=== PATIENT | male | born 1960 | race Caucasian/White ===

== ENCOUNTER 2020-12-29 15:35 | Emergency (ER) | payer OTHER ==
[~2020-12-29 15:35] MED LIST: ASPIRIN EC81 MG PO; HCTZ25 MG PO; LIPITOR 10MG TA10 MG PO; NORVASC5 MG PO; ZOFRAN4 MG SL
[2020-12-29 17:10] LABS: BASOPHIL 0.7 % (0-2); EOSINOPHIL 1.5 % (0-5); HCT 41.4 % (42.0-52.0); HGB 13.2 g/dl (13.2-18.0); MCH 32.7 pg (25.0-31.0); MCHC 31.9 g/dL (32.0-36.0); MCV 102.5 fL (78.0-100.0); MONOCYTE 9.5 % (0-12); MPV 10.7 fL (6.0-9.5); NEUTROPHIL 75.9 % (41-80); NRBC 0; PLT 254 K/uL (150-400); RBC 4.04 M/uL (4.70-6.00); RETICULOCYTE COUNT 3.7 % (1.0-2.0); WBC 6.9 K/uL (4.0-10.5)
[2020-12-29 17:20] LABS: INR 1.13 (0.9-1.2); PROTHROMBIN TIME 13.8 SECONDS (11.4-13.6)
[2020-12-29 17:30] LABS: IRON % SATURATION 17.3 %SAT (20-50)
[2020-12-29 18:05] LABS: ALBUMIN 2.6 g/dL (3.4-5.0); BILIRUBIN - TOTAL 0.4 mg/dL (0.2-1.0); BUN/CREAT RATIO (CALC) 20.8 RATIO; CREATININE 0.53 mg/dL (0.67-1.17); GLOBULIN (CALCULATION) 4.2 g/dL; MAGNESIUM 1.8 mg/dL (1.8-2.4); POTASSIUM 4.3 mmol/L (3.5-5.1); TOTAL PROTEIN 6.8 g/dL (6.4-8.2)
== END 2020-12-29 21:13 | disposition home or self-care (01) ==
LOC: FER 15:35
PROVIDERS: Emergency Medicine
DX: R06.02 Shortness of breath (principal); C15.9 Malignant neoplasm of esophagus, unspecified; C79.51 Secondary malignant neoplasm of bone; J90 Pleural effusion, not elsewhere classified; Z20.822 Contact with and (suspected) exposure to COVID-19
CPT/HCPCS: 36415; 71250; 80053; 82728; 83540; 83550; 83735; 84145; 84443; 84484; 85025; 85379; 85610; 93005; J1642; U0002

== ENCOUNTER 2021-01-01 14:14 | Emergency (ER) | payer OTHER | END 2021-01-01 15:50 | disposition left against medical advice (07) | LOC: FER 14:14 | DX: J90 Pleural effusion, not elsewhere classified (principal); I10 Essential (primary) hypertension; Z85.01 Personal history of malignant neoplasm of esophagus; Z87.898 Personal history of other specified conditions; Z53.8 Procedure and treatment not carried out for other reasons | CPT/HCPCS: 99284 ==

== ENCOUNTER 2021-02-06 13:11 | Inpatient (IN) | payer OTHER ==
[2021-02-06 15:25] LABS: ALBUMIN 1.3 g/dL (3.4-5.0); BASOPHIL 0.2 % (0-2); BILIRUBIN - TOTAL 0.2 mg/dL (0.2-1.0); BUN/CREAT RATIO (CALC) 20.6 RATIO; CREATININE 0.34 mg/dL (0.67-1.17); EOSINOPHIL 0.3 % (0-5); GLOBULIN (CALCULATION) 2.9 g/dL; HCT 32.8 % (42.0-52.0); HGB 10.8 g/dl (13.2-18.0); LYMPHOCYTE 3.5 % (15-48); MCH 32.4 pg (25.0-31.0); MCHC 32.9 g/dL (32.0-36.0); MCV 98.5 fL (78.0-100.0); MONOCYTE 6.5 % (0-12); MPV 10.5 fL (6.0-9.5); NEUTROPHIL 88.8 % (41-80); NRBC 0; PLT 304 K/uL (150-400); POTASSIUM 2.5 mmol/L (3.5-5.1); RBC 3.33 M/uL (4.70-6.00); RDW 14.4 % (11.5-14.0); TOTAL PROTEIN 4.2 g/dL (6.4-8.2)
[2021-02-06 15:31] LABS: INR 1.22 (0.9-1.2); PROTHROMBIN TIME 14.6 SECONDS (11.4-13.6); PTT 31.7 SECONDS (22.2-34.7)
[2021-02-06 16:02] LABS: PHOSPHORUS 2.8 mg/dL (2.6-4.7)
[2021-02-06] MEDS ORDERED: MAG-OXIDE 400M400 MG PO (16:50)
[2021-02-06] MEDS ORDERED: PROTONIX 40MG T40 MG PO (16:52)
[2021-02-06] MEDS ORDERED: CYPROHEPTADINE H4 M1 PO (16:54)
[2021-02-06] MEDS ORDERED: COMPAZINE10 MG PO (16:55)
[2021-02-06] MEDS ORDERED: DEXAMETHASONE1 MG PO (16:56)
[2021-02-06] MEDS ORDERED: PROBIOTIC1 EAC1 PO (16:56)
[2021-02-06] MEDS ORDERED: CYMBALTA 30MG C30 MG PO (16:58)
[2021-02-06] MEDS ORDERED: PERCOCET 10-321 EACH PO (16:59)
[2021-02-06] MEDS ORDERED: ONDANSETRON ODT8 MG PO (17:00)
[2021-02-07 06:05] LABS: BASOPHIL 0.6 % (0-2); EOSINOPHIL 0.5 % (0-5); HCT 37.6 % (42.0-52.0); HGB 12.5 g/dl (13.2-18.0); LYMPHOCYTE 8.4 % (15-48); MCH 32.6 pg (25.0-31.0); MCHC 33.2 g/dL (32.0-36.0); MCV 97.9 fL (78.0-100.0); MPV 10.8 fL (6.0-9.5); NEUTROPHIL 78.5 % (41-80); NRBC 0; PLT 371 K/uL (150-400); RBC 3.84 M/uL (4.70-6.00); RDW 14.6 % (11.5-14.0); WBC 10.5 K/uL (4.0-10.5)
[2021-02-07 06:23] LABS: BUN/CREAT RATIO (CALC) 18.5 RATIO; CREATININE 0.54 mg/dL (0.67-1.17)
[2021-02-07 06:27] LABS: MAGNESIUM 1.9 mg/dL (1.8-2.4); POTASSIUM 4.3 mmol/L (3.5-5.1)
--- NOTE | 2021-02-07 12:16 | NUR ---
Consult placed for assessment of nutritional/ wt loss with low serum proteins. Pt currently NPO : visited patient for intake history and any deficits with oral intake. Dicussed POC with MD - awaiting surgical consult. will f/u when p.o. appropriate.
--- NOTE | 2021-02-07 12:39 | NUR ---
Pt. to d/c home with girlfriend. a referral was put in on patient that he had a plan to harm himself. Spoke with nurse, Elise. She said that was a mistake. When she was completing his assessment she hit the yes by mistake. She stated that pt did not have any sucidial ideations. if pt. has any d/c needs please advise.
[2021-02-08 05:20] LABS: BASOPHIL 0.7 % (0-2); EOSINOPHIL 1.2 % (0-5); HCT 37.4 % (42.0-52.0); HGB 12.3 g/dl (13.2-18.0); LYMPHOCYTE 7.5 % (15-48); MCH 32.5 pg (25.0-31.0); MCHC 32.9 g/dL (32.0-36.0); MCV 98.7 fL (78.0-100.0); MONOCYTE 8.4 % (0-12); NEUTROPHIL 81.2 % (41-80); NRBC 0; PLT 312 K/uL (150-400); RBC 3.79 M/uL (4.70-6.00); RDW 14.7 % (11.5-14.0); WBC 10.1 K/uL (4.0-10.5)
[2021-02-08 05:48] LABS: BUN/CREAT RATIO (CALC) 21.1 RATIO; CREATININE 0.57 mg/dL (0.67-1.17); POTASSIUM 4.4 mmol/L (3.5-5.1)
--- NOTE | 2021-02-08 14:38 | NUR ---
PT TO D/C HOME. NO NEEDS PER DR. JUAREZ.
--- NOTE | 2021-02-08 18:39 | NUR ---
md notified about pt nose bleed and increased confusion and md stated to just monitor pt status and vitals
[2021-02-09 07:20] LABS: BASOPHIL 0.4 % (0-2); EOSINOPHIL 0.6 % (0-5); HCT 40.2 % (42.0-52.0); HGB 13.2 g/dl (13.2-18.0); LYMPHOCYTE 6.4 % (15-48); MCH 32.8 pg (25.0-31.0); MCHC 32.8 g/dL (32.0-36.0); MONOCYTE 8.2 % (0-12); MPV 10.3 fL (6.0-9.5); NEUTROPHIL 83.4 % (41-80); NRBC 0; PLT 351 K/uL (150-400); RBC 4.02 M/uL (4.70-6.00); RDW 14.6 % (11.5-14.0); WBC 12.6 K/uL (4.0-10.5)
[2021-02-09 07:55] LABS: CREATININE 0.6 mg/dL (0.67-1.17); POTASSIUM 4.5 mmol/L (3.5-5.1)
--- NOTE | 2021-02-09 13:23 | NUR ---
0810- PT ASPIRATED WHILE DRINKING WATER, PT VOMITED. I +E WHEEZING, RALES LISA LOWER LOBES. PT DYPHORETIC, DESTATED TO 69% PLACED ON NRB. DR. KRISHNAMURTHY AT [facility] NOTIFIED AND ASSESSED PT. STAT CXRAY AND DUO NEB ORDERED. DR. KRISHNAMURTHY SPOKE WITH DR. CORBIN UPON HIS ARRIVAL. PT O2 SAT 96% ON NRB.
[2021-02-10 03:55] LABS: BASOPHIL 0.3 % (0-2); EOSINOPHIL 0.6 % (0-5); HCT 36.9 % (42.0-52.0); HGB 12.2 g/dl (13.2-18.0); LYMPHOCYTE 5.3 % (15-48); MCH 32.4 pg (25.0-31.0); MCHC 33.1 g/dL (32.0-36.0); MCV 98.1 fL (78.0-100.0); MONOCYTE 6.9 % (0-12); MPV 9.9 fL (6.0-9.5); NEUTROPHIL 86.4 % (41-80); NRBC 0; PLT 359 K/uL (150-400); RBC 3.76 M/uL (4.70-6.00); RDW 14.7 % (11.5-14.0); WBC 15.4 K/uL (4.0-10.5)
[2021-02-10 04:22] LABS: PRO-BNP 967 pg/mL (<125)
[2021-02-11 04:15] LABS: BASOPHIL 0.2 % (0-2); EOSINOPHIL 0.6 % (0-5); HCT 36.4 % (42.0-52.0); LYMPHOCYTE 4.8 % (15-48); MCH 32.3 pg (25.0-31.0); MCV 97.8 fL (78.0-100.0); MONOCYTE 6.9 % (0-12); MPV 9.7 fL (6.0-9.5); NEUTROPHIL 86.8 % (41-80); NRBC 0; PLT 282 K/uL (150-400); RBC 3.72 M/uL (4.70-6.00); RDW 14.5 % (11.5-14.0); WBC 13.5 K/uL (4.0-10.5)
[2021-02-11 04:46] LABS: BUN/CREAT RATIO (CALC) 24.5 RATIO; CREATININE 0.49 mg/dL (0.67-1.17); POTASSIUM 4.1 mmol/L (3.5-5.1)
--- NOTE | 2021-02-11 15:59 | NUR ---
02/11/21 Portable 02 was delivered to the hospital by Alisha on 02/10. Alisha was notified of patient's discharge today by Tho Myers. Samys will arrange delivery of the concentrator.
== END 2021-02-11 15:00 | disposition home or self-care (01) | DRG 199 ==
LOC: FER 13:11 → FTCU 14:21
PROVIDERS: Internal Medicine Cardiovascular Disease; Nurse Practitioner; ADMIT Internal Medicine
PROC: 0W9B30Z Drainage of Left Pleural Cavity with Drainage Device, Percutaneous Approach (ICD-10-PCS; principal; 2021-02-06)
DX: J95.811 Postprocedural pneumothorax (principal); G93.41 Metabolic encephalopathy; J91.0 Malignant pleural effusion; C78.00 Secondary malignant neoplasm of unspecified lung; C15.9 Malignant neoplasm of esophagus, unspecified; Z20.822 Contact with and (suspected) exposure to COVID-19; I48.0 Paroxysmal atrial fibrillation; E78.00 Pure hypercholesterolemia, unspecified; D51.9 Vitamin B12 deficiency anemia, unspecified; D50.9 Iron deficiency anemia, unspecified; E55.9 Vitamin D deficiency, unspecified; Z66 Do not resuscitate; I10 Essential (primary) hypertension; K29.50 Unspecified chronic gastritis without bleeding; F17.200 Nicotine dependence, unspecified, uncomplicated; Z79.899 Other long term (current) drug therapy; Z98.890 Other specified postprocedural states; Z90.49 Acquired absence of other specified parts of digestive tract; Y83.8 Other surgical procedures as the cause of abnormal reaction of the patient, or of later complication, without mention of misadventure at the time of the procedure
CPT/HCPCS: 36415; 36600; 70450; 71045; 71046; 80048; 80053; 82803; 83605; 83735; 83880; 84100; 84443; 84484; 85025; 85610; 85730; 93005; 94010; 94640; 96374; J0610; J1630; J1642; J2060; J3475; J7040; Q0164; U0002

== ENCOUNTER 2021-02-12 19:06 | Inpatient (IN) | payer OTHER ==
[~2021-02-12 19:06] MED LIST changes: +COMPAZINE10 MG PO; +CYMBALTA 30MG C30 MG PO; +CYPROHEPTADINE H4 M1 PO; +DEXAMETHASONE1 MG PO; +MAG-OXIDE 400M400 MG PO; +ONDANSETRON ODT8 MG PO; +PERCOCET 10-321 EACH PO; +PROBIOTIC1 EAC1 PO; +PROTONIX 40MG T40 MG PO
[2021-02-12 19:57] LABS: BASOPHIL 0.2 % (0-2); EOSINOPHIL 0.3 % (0-5); HCT 40.3 % (42.0-52.0); HGB 13.3 g/dl (13.2-18.0); LYMPHOCYTE 1.8 % (15-48); MCH 31.9 pg (25.0-31.0); MCV 96.6 fL (78.0-100.0); MONOCYTE 4.5 % (0-12); MPV 10.7 fL (6.0-9.5); NEUTROPHIL 88.5 % (41-80); NRBC 0; PLT 335 K/uL (150-400); RBC 4.17 M/uL (4.70-6.00); RDW 14.3 % (11.5-14.0)
[2021-02-12 20:04] LABS: WBC 30.1 K/uL (4.0-10.5)
[2021-02-12 20:10] LABS: INR 1.59 (0.9-1.2)
[2021-02-12 20:11] LABS: D-DIMER 3.91 ug/mLFEU (0.00-0.41)
[2021-02-12 20:18] LABS: LACTIC ACID 2.7 mmol/L (0.4-1.9)
[2021-02-12 20:20] LABS: ALBUMIN 1.9 g/dL (3.4-5.0); BILIRUBIN - TOTAL 0.5 mg/dL (0.2-1.0); BUN/CREAT RATIO (CALC) 27.1 RATIO; CREATININE 0.7 mg/dL (0.67-1.17); FT4 (FREE T4) 1.5 ng/dL (0.76-1.46); GLOBULIN (CALCULATION) 5.3 g/dL; POTASSIUM 4.6 mmol/L (3.5-5.1); PRO-BNP 2793 pg/mL (<125); TOTAL PROTEIN 7.2 g/dL (6.4-8.2)
[2021-02-12 20:45] LABS: PTT > 180 SECONDS (22.2-34.7)
[2021-02-12 23:06] LABS: BILIRUBIN 1+ mg/dL (NEGATIVE); BLOOD NEGATIVE Ery/uL (NEGATIVE); CLARITY CLEAR (CLEAR); COLOR YELLOW (YELLOW); GLUCOSE (U) NORMAL (NORMAL); LEUKOCYTES NEGATIVE Leu/uL (NEGATIVE); NITRITE NEGATIVE (NEGATIVE); PROTEIN TRACE (LOW) mg/dL (NEGATIVE); SPECIFIC GRAVITY 1.015 (1.001-1.030); UROBILINOGEN 0.2 mg/dL (0.2-1.0)
[2021-02-12 23:11] LABS: URINARY RBC RARE; URINARY WBC RARE
[2021-02-12 23:12] LABS: BACTERIA TRACE; SQUAMOUS EPITHELIAL CELLS RARE
[2021-02-13 06:44] LABS: BASOPHIL 0.3 % (0-2); EOSINOPHIL 0.1 % (0-5); HCT 37.8 % (42.0-52.0); HGB 12.4 g/dl (13.2-18.0); MCHC 32.8 g/dL (32.0-36.0); MCV 97.7 fL (78.0-100.0); MONOCYTE 3.8 % (0-12); MPV 10.7 fL (6.0-9.5); NEUTROPHIL 89.8 % (41-80); NRBC 0; PLT 324 K/uL (150-400); RBC 3.87 M/uL (4.70-6.00); RDW 14.3 % (11.5-14.0)
[2021-02-13 06:49] LABS: WBC 36.2 K/uL (4.0-10.5)
[2021-02-13 07:01] LABS: CORONAVIRUS 2019 SARS-COV-2 NEGATIVE (NEGATIVE); INFLUENZA A NAA NEGATIVE (NEGATIVE)
[2021-02-13 07:30] LABS: INR 1.47 (0.9-1.2); PROTHROMBIN TIME 16.9 SECONDS (11.4-13.6); PTT 42.2 SECONDS (22.2-34.7)
[2021-02-13 07:31] LABS: BUN/CREAT RATIO (CALC) 29.7 RATIO; CREATININE 0.64 mg/dL (0.67-1.17); POTASSIUM 3.8 mmol/L (3.5-5.1)
--- NOTE | 2021-02-13 15:41 | NUR ---
02/13/21 An interview was conducted at bedside with Mr. Rodríguez and his girlfriend, Margarita Wheeler. Mr. Rodríguez is a 60 y/o gentleman. He has 3 children. One daughter has recently started visiting in the home. Ms. Wheeler stays with Mr. Rodríguez to assist as needed. - Mr. Rodríguez has home 02. - He reports to have had HH for IV antibitics approximately 6 months ago. [facility], [facility], nor [facility] have had him in the past. - Mr. Rodríguez has a dx of esophageal cancer with lung mets. He is followed by Dr. Deutsch. Mr. Rodríguez and Ms. Wheeler report that Mr. Rodríguez is receiving Palliative treatment. He states, he is not interested in Hospice services.
--- NOTE | 2021-02-14 02:45 | NUR ---
AT 0224 PATIENT'S HEART RATE WAS 160'S. ROBBIN VELÁZQUEZ WAS NOTIFIED AND ORDERS OF EKG, LOPRESSOR, AND CARDIOLOGY CONSULT WAS GIVEN. PATIENT RESTING IN BED IN NO DISTRESS.
[2021-02-14 03:25] LABS: BASOPHIL 0.1 % (0-2); EOSINOPHIL 0 % (0-5); HCT 33.6 % (42.0-52.0); HGB 11.2 g/dl (13.2-18.0); LYMPHOCYTE 1.8 % (15-48); MCH 32.6 pg (25.0-31.0); MCHC 33.3 g/dL (32.0-36.0); MCV 97.7 fL (78.0-100.0); MONOCYTE 3.4 % (0-12); MPV 10.9 fL (6.0-9.5); NRBC 0; PLT 302 K/uL (150-400); RBC 3.44 M/uL (4.70-6.00); RDW 14.5 % (11.5-14.0); WBC 22.5 K/uL (4.0-10.5)
[2021-02-14 03:28] LABS: NEUTROPHIL 87.3 % (41-80)
[2021-02-14 03:41] LABS: MAGNESIUM 1.8 mg/dL (1.8-2.4); PHOSPHORUS 3.3 mg/dL (2.6-4.7)
[2021-02-14 03:42] LABS: BUN/CREAT RATIO (CALC) 32.8 RATIO; CREATININE 0.58 mg/dL (0.67-1.17); POTASSIUM 3.4 mmol/L (3.5-5.1)
[2021-02-14 04:42] LABS: ECSTASY (MDMA) NEGATIVE (NEGATIVE); MARIJUANA (THC) NEGATIVE (NEGATIVE); METHADONE NEGATIVE (NEGATIVE); OPIATES NEGATIVE (NEGATIVE)
[2021-02-14 04:43] LABS: AMPHETAMINES NEGATIVE (NEGATIVE); BARBITURATES NEGATIVE (NEGATIVE); OXYCODONE POSITIVE (NEGATIVE)
[2021-02-15 05:49] LABS: BASOPHIL 0.2 % (0-2); EOSINOPHIL 0 % (0-5); HCT 33.2 % (42.0-52.0); HGB 11.1 g/dl (13.2-18.0); LYMPHOCYTE 2.3 % (15-48); MCH 32.5 pg (25.0-31.0); MCHC 33.4 g/dL (32.0-36.0); MCV 97.1 fL (78.0-100.0); MONOCYTE 3.8 % (0-12); MPV 11.1 fL (6.0-9.5); NRBC 0; PLT 335 K/uL (150-400); RBC 3.42 M/uL (4.70-6.00); RDW 14.3 % (11.5-14.0); WBC 16.8 K/uL (4.0-10.5)
[2021-02-15 05:52] LABS: NEUTROPHIL 91.4 % (41-80)
[2021-02-15 06:08] LABS: ALBUMIN 1.6 g/dL (3.4-5.0); BILIRUBIN - TOTAL 0.3 mg/dL (0.2-1.0); CREATININE 0.45 mg/dL (0.67-1.17); GLOBULIN (CALCULATION) 4.9 g/dL; MAGNESIUM 1.9 mg/dL (1.8-2.4); TOTAL PROTEIN 6.5 g/dL (6.4-8.2)
[2021-02-15] MEDS ORDERED: AMIODARONE HCL200 MG PO (09:17)
[2021-02-16 05:05] LABS: BUN/CREAT RATIO (CALC) 34.5 RATIO; CREATININE 0.58 mg/dL (0.67-1.17); MAGNESIUM 2.1 mg/dL (1.8-2.4); POTASSIUM 4.3 mmol/L (3.5-5.1)
--- NOTE | 2021-02-16 07:45 | NUR ---
0655 PT WENT INTO AFIB WITH RVR HR 130-140, 81% ON 50% VENTY, RR 28, DIAPHORETIC, BS 176, BP 139/94. 0700 PT PLACED ON BIPAP 100%, NOTIFIED OF PT CHANGE OF STATUS 0706 5MG IV LOPRESSOR GIVEN, EKG, CHEST X-RAY AND ABG TAKEN 0728 PT CONVERTED TO SINUS RHYTHM HR 107
--- NOTE | 2021-02-16 12:38 | NUR ---
S/W DR CATALAN VIA TELEPHONE, PATIENTS HR 120-130 SINUS RHYTHM. BP 102/78. STATED THAT DR SALDANA INCREASED PATIENTS AMIODARONE TO 200 MG TID AND THERE WAS "NO OTHER ROOM FOR ANY MORE MEDICINE" BECAUSE OF BP.
--- NOTE | 2021-02-16 19:13 | NUR ---
1800 HR 150'S, DR CATALAN AT BEDSIDE. PATIENT AGITATED, PATIENT REMOVED HEART MONITOR AND PULSE OX. REFUSES TO WEAR BOTH AT THIS TIME. BP 94/75, DR CATALAN STATED HOLD LOPRESSOR AT THIS TIME DUE TO LOW BP. DR CATALAN AWARE THAT PATIENT IS REFUSING HEART MONITOR AND PULSE OX AT THIS TIME
--- NOTE | 2021-02-17 02:14 | NUR ---
02/16/21 2315PT ASSISTED TO THE BATHROOM AT THIS TIME. PT NOTED TO BE SLIGHTLY SHORT OF BREATH BUT TOLERATED AMBULATION. 2345VITAL SIGN CHECKED ON PATIENT. PATIENT NOTED TO BE CAMARENA IN COLOR. PT ALSO DUSKY, COOL, CLAMMY, AND DIAPHORETIC. O2 SAT ON DYNAMAP SHOWING SAT IN 70-80'S ON 3LNC. RESPIRATORY CONTACTED FOR NEED OF BIPAP THERAPY. WELFARE INVESTIGATOR NOTIFIED AND BROUGHT INTO ROOM TO BE ASSESSED. PT WITH RHONCHI/RALES IN ALL LOBES. PT LETHARGIC AND SLOW TO RESPOND. BIPAP PLACED ON AND ABD NATALEE AT 0007. PT O2 SAT INCREASED TO 100% AND PT'S COLOR IMPROVED. 1MG BUMEX ORDERED.
[2021-02-17 05:12] LABS: BASOPHIL 1.4 % (0-2); EOSINOPHIL 0 % (0-5); HCT 36.2 % (42.0-52.0); HGB 11.3 g/dl (13.2-18.0); MCH 31.5 pg (25.0-31.0); MCHC 31.2 g/dL (32.0-36.0); MCV 100.8 fL (78.0-100.0); MONOCYTE 11.1 % (0-12); MPV 10.8 fL (6.0-9.5); NEUTROPHIL 75.4 % (41-80); NRBC 0; PLT 289 K/uL (150-400); RBC 3.59 M/uL (4.70-6.00); RDW 14.3 % (11.5-14.0); WBC 12.7 K/uL (4.0-10.5)
[2021-02-17 05:21] LABS: INR 1.18 (0.9-1.2); PROTHROMBIN TIME 14.2 SECONDS (11.4-13.6); PTT 25.4 SECONDS (22.2-34.7)
[2021-02-17 05:53] LABS: ALBUMIN 2.2 g/dL (3.4-5.0); BILIRUBIN - TOTAL 0.3 mg/dL (0.2-1.0); BUN/CREAT RATIO (CALC) 38.9 RATIO; CREATININE 0.54 mg/dL (0.67-1.17); POTASSIUM 3.3 mmol/L (3.5-5.1); TOTAL PROTEIN 6.2 g/dL (6.4-8.2)
[2021-02-18 05:48] LABS: BASOPHIL 0.1 % (0-2); EOSINOPHIL 0.1 % (0-5); HCT 38.6 % (42.0-52.0); HGB 12.2 g/dl (13.2-18.0); LYMPHOCYTE 4.7 % (15-48); MCH 31.9 pg (25.0-31.0); MCHC 31.6 g/dL (32.0-36.0); MCV 100.8 fL (78.0-100.0); MONOCYTE 8.4 % (0-12); MPV 10.8 fL (6.0-9.5); NEUTROPHIL 77.9 % (41-80); NRBC 0; PLT 350 K/uL (150-400); RBC 3.83 M/uL (4.70-6.00); RDW 14.4 % (11.5-14.0)
[2021-02-18 06:00] LABS: WBC 16.2 K/uL (4.0-10.5)
[2021-02-18 06:09] LABS: BUN/CREAT RATIO (CALC) 40.9 RATIO; CREATININE 0.44 mg/dL (0.67-1.17); POTASSIUM 3.5 mmol/L (3.5-5.1)
[2021-02-19] MEDS ORDERED: MUCINEX1200 MG PO (12:54)
[2021-02-19] MEDS ORDERED: AUGMENTIN 875-1 EACH PO (12:54)
--- NOTE | 2021-02-19 13:52 | NUR ---
PATIENT DECIDED TO GO HOME AMA. PORT A CATH DCD. MONITOR DCD.
--- NOTE | 2021-02-19 14:30 | NUR ---
DISCHARGED BY WHEELCHAIR TO FRONT DOOR. PORT A CATH DCD, MONITOR DCD. DID NOT WANT DISCHARGE INFORMATION. PACKET SENT WITH PATIENT.
--- NOTE | 2021-02-19 15:45 | NUR ---
02/19/21 Mr. Rodríguez left AMA.
== END 2021-02-19 13:55 | disposition left against medical advice (07) | DRG 871 ==
LOC: FER 19:06 → FICU 02-13 04:11 → FTCU 02-15 09:44
PROVIDERS: Emergency Medicine Emergency Medical Services; Nurse Practitioner; Nurse Practitioner Family; ADMIT Internal Medicine
PROC: 5A09457 Assistance with Respiratory Ventilation, 24-96 Consecutive Hours, Continuous Positive Airway Pressure (ICD-10-PCS; principal; 2021-02-13)
DX: A40.9 Streptococcal sepsis, unspecified (principal); R65.21 Severe sepsis with septic shock; J96.21 Acute and chronic respiratory failure with hypoxia; J96.22 Acute and chronic respiratory failure with hypercapnia; J15.4 Pneumonia due to other streptococci; E87.2 Acidosis; J91.0 Malignant pleural effusion; I47.1 Supraventricular tachycardia; J44.1 Chronic obstructive pulmonary disease with (acute) exacerbation; J44.0 Chronic obstructive pulmonary disease with (acute) lower respiratory infection; C78.00 Secondary malignant neoplasm of unspecified lung; Z66 Do not resuscitate; Z51.5 Encounter for palliative care; Z20.822 Contact with and (suspected) exposure to COVID-19; K29.50 Unspecified chronic gastritis without bleeding; E78.00 Pure hypercholesterolemia, unspecified; I10 Essential (primary) hypertension; E55.9 Vitamin D deficiency, unspecified; D50.9 Iron deficiency anemia, unspecified; D51.9 Vitamin B12 deficiency anemia, unspecified; I48.91 Unspecified atrial fibrillation; G89.29 Other chronic pain; Z79.899 Other long term (current) drug therapy; Z85.01 Personal history of malignant neoplasm of esophagus; Z90.49 Acquired absence of other specified parts of digestive tract; Y95 Nosocomial condition
CPT/HCPCS: 36415; 36600; 71045; 71275; 80048; 80053; 80202; 80305; 81001; 82803; 83605; 83735; 83880; 84100; 84439; 84443; 84484; 85025; 85379; 85610; 85730; 87040; 87077; 87186; 93005; 94010; 94640; 94660; 94667; 94668; J0153; J0282; J0696; J1160; J1642; J1650; J1940; J2543; J2920; J7030; J7060; J7512; P9047; Q9967; U0002

== ENCOUNTER 2021-02-25 18:17 | Inpatient (IN) | payer OTHER ==
[~2021-02-25] VITALS: Ht 177.8 cm; Wt 91.3 kg
[~2021-02-25 18:17] MED LIST changes: +AMIODARONE HCL200 MG PO; +AUGMENTIN 875-1 EACH PO; +MUCINEX1200 MG PO
[2021-02-25 18:57] LABS: BASOPHIL 0.4 % (0-2); EOSINOPHIL 0.1 % (0-5); HCT 37.7 % (42.0-52.0); HGB 11.5 g/dl (13.2-18.0); MCHC 30.5 g/dL (32.0-36.0); MONOCYTE 5.8 % (0-12); MPV 11.1 fL (6.0-9.5); NRBC 0; PLT 352 K/uL (150-400); RBC 3.59 M/uL (4.70-6.00)
[2021-02-25 19:01] LABS: INR 1.32 (0.9-1.2); PROTHROMBIN TIME 15.6 SECONDS (11.4-13.6)
[2021-02-25 19:02] LABS: NEUTROPHIL 88.1 % (41-80); PTT 53.9 SECONDS (22.2-34.7)
[2021-02-25 19:09] LABS: ALBUMIN 2.1 g/dL (3.4-5.0); BILIRUBIN - TOTAL 0.4 mg/dL (0.2-1.0); BUN/CREAT RATIO (CALC) 22.5 RATIO; CREATININE 0.89 mg/dL (0.67-1.17); GLOBULIN (CALCULATION) 3.9 g/dL; POTASSIUM 4.3 mmol/L (3.5-5.1)
[2021-02-25 19:16] LABS: CKMB 10.2 ng/mL (0.0-3.6)
[2021-02-25 22:00] LABS: PHOSPHORUS 6.8 mg/dL (2.6-4.7)
[2021-02-26 02:39] LABS: BASOPHIL 0.2 % (0-2); HCT 36.6 % (42.0-52.0); HGB 11.1 g/dl (13.2-18.0); LYMPHOCYTE 2.3 % (15-48); MCH 30.7 pg (25.0-31.0); MCHC 30.3 g/dL (32.0-36.0); MCV 101.1 fL (78.0-100.0); PLT 347 K/uL (150-400); RBC 3.62 M/uL (4.70-6.00); RDW 14.9 % (11.5-14.0); WBC 17.32 K/uL (4.0-10.5)
[2021-02-26 02:41] LABS: NEUTROPHIL 93.2 % (41-80)
--- NOTE | 2021-02-26 14:34 | NUR ---
02/26/21 A social work referral was received to discuss Hospice. Mr. Rodríguez is currently ventilated and unable to participate in an assessment. It was noted in previous assessment that patient was not interested in Hospice. - He lives alone, although his girlfriend, Margarita Wheeler, , stays in the home. Mr. Rodríguez has home 02. - According to nursing, Margarita Rodríguez, daughter, , wishes for patient to be re-intubated if needed and not to have chest compressions. - This director of social services will have further conversation re: Hospice services with patient and family as appropriate.
[2021-02-27 05:46] LABS: BASOPHIL 0.1 % (0-2); EOSINOPHIL 0.3 % (0-5); HCT 31.5 % (42.0-52.0); HGB 10.1 g/dl (13.2-18.0); LYMPHOCYTE 2.7 % (15-48); MCH 32.2 pg (25.0-31.0); MCHC 32.1 g/dL (32.0-36.0); MCV 100.3 fL (78.0-100.0); MONOCYTE 5.2 % (0-12); MPV 10.8 fL (6.0-9.5); NEUTROPHIL 90.6 % (41-80); NRBC 0; PLT 235 K/uL (150-400); RBC 3.14 M/uL (4.70-6.00); RDW 15.9 % (11.5-14.0)
[2021-02-27 05:56] LABS: WBC 14.3 K/uL (4.0-10.5)
[2021-02-27 06:03] LABS: BUN/CREAT RATIO (CALC) 27.8 RATIO; CREATININE 0.9 mg/dL (0.67-1.17); PHOSPHORUS 3.3 mg/dL (2.6-4.7); POTASSIUM 3.9 mmol/L (3.5-5.1)
[2021-02-28 06:02] LABS: BASOPHIL 0.1 % (0-2); EOSINOPHIL 0 % (0-5); HCT 30.3 % (42.0-52.0); HGB 9.6 g/dl (13.2-18.0); LYMPHOCYTE 3.5 % (15-48); MCH 32.2 pg (25.0-31.0); MCHC 31.7 g/dL (32.0-36.0); MCV 101.7 fL (78.0-100.0); MONOCYTE 5.9 % (0-12); MPV 11.1 fL (6.0-9.5); NEUTROPHIL 89.1 % (41-80); NRBC 0; PLT 205 K/uL (150-400); RBC 2.98 M/uL (4.70-6.00); RDW 15.8 % (11.5-14.0); WBC 10.5 K/uL (4.0-10.5)
[2021-02-28 06:16] LABS: BUN/CREAT RATIO (CALC) 30.9 RATIO; CREATININE 0.68 mg/dL (0.67-1.17)
[2021-03-01 05:47] LABS: BASOPHIL 0.1 % (0-2); EOSINOPHIL 0.1 % (0-5); HCT 30.6 % (42.0-52.0); HGB 9.8 g/dl (13.2-18.0); LYMPHOCYTE 1.7 % (15-48); MCH 31.9 pg (25.0-31.0); MCV 99.7 fL (78.0-100.0); MONOCYTE 2.3 % (0-12); MPV 11.1 fL (6.0-9.5); NRBC 0; PLT 258 K/uL (150-400); RBC 3.07 M/uL (4.70-6.00); RDW 15.8 % (11.5-14.0); WBC 12.7 K/uL (4.0-10.5)
[2021-03-01 06:03] LABS: NEUTROPHIL 94.5 % (41-80)
[2021-03-01 06:08] LABS: BUN/CREAT RATIO (CALC) 29.7 RATIO; CREATININE 0.64 mg/dL (0.67-1.17); MAGNESIUM 1.9 mg/dL (1.8-2.4); PHOSPHORUS 1.8 mg/dL (2.6-4.7); POTASSIUM 3.4 mmol/L (3.5-5.1)
--- NOTE | 2021-03-01 18:54 | NUR ---
1700 FOUND OG ON FLOOR BESIDE BED REPLaced and confirmed by xray
[2021-03-02 05:15] LABS: BASOPHIL 0.1 % (0-2); EOSINOPHIL 0 % (0-5); HCT 31.2 % (42.0-52.0); HGB 10.1 g/dl (13.2-18.0); LYMPHOCYTE 1.7 % (15-48); MCH 32.7 pg (25.0-31.0); MCHC 32.4 g/dL (32.0-36.0); MONOCYTE 3.3 % (0-12); MPV 11.3 fL (6.0-9.5); NRBC 0; PLT 255 K/uL (150-400); RBC 3.09 M/uL (4.70-6.00); WBC 12.5 K/uL (4.0-10.5)
[2021-03-02 05:16] LABS: NEUTROPHIL 94.3 % (41-80)
[2021-03-02 05:41] LABS: BUN/CREAT RATIO (CALC) 32.7 RATIO; CREATININE 0.55 mg/dL (0.67-1.17); PHOSPHORUS 2.5 mg/dL (2.6-4.7)
--- NOTE | 2021-03-02 10:57 | NUR ---
1040 GIRLFRIEND JAVI CHAVEZ [phone] CALLED TO CHECK ON PATIENT. PATIENT HAS TWO DAUGHTERS JAVI AND LUCINA. GIRLFRIEND STAED THAT SHE FOUND A POA BUT WAS NOT SURE IF IT WAS MEDICAL OR FINANCIAL OR BOTH. SHE TOOK IT TO MR ZAVALA BROTHER IN LAW WHEN SHE FOUND IT. SHE WILL CALL BROTHER IN LAW TO SEE WHAT POA SAYS AND WILL TRY TO BRING IT TO THE HOSPITAL.
--- NOTE | 2021-03-02 11:25 | NUR ---
AUNT CALLED REGARDING PATIENT CONDITION. SATATED SHE WAS CONCERNED ABOUT PATIENT AND THAT SHE HAD SPOKEN TO HIS EX AND THYE WERE SURE HE DID NOT WANT TO BE ON VENTILATOR.
--- NOTE | 2021-03-02 18:09 | NUR ---
GIRLFRIEND HERE, BROUGHT IN POWER OF REPEAT CHIEF. APPEARS TO CONTAIN SOME MEDICAL COMPONENT. Jeanie CAREY TO STOP BY SATURDAY 03/03 AT [address] CATALAN. COPY OF CHERRY LEFT ON CHART ALONG WITH JEANIE OLIVEROS PHONE NUMBER. MESSAGE LEFT ON [employer] PHONE
[2021-03-03 06:05] LABS: BASOPHIL 0.1 % (0-2); EOSINOPHIL 0 % (0-5); HCT 33.4 % (42.0-52.0); HGB 10.6 g/dl (13.2-18.0); MCH 32.1 pg (25.0-31.0); MCHC 31.7 g/dL (32.0-36.0); MCV 101.2 fL (78.0-100.0); MPV 11.4 fL (6.0-9.5); NRBC 0; PLT 250 K/uL (150-400); RDW 16.1 % (11.5-14.0); WBC 17.3 K/uL (4.0-10.5)
[2021-03-03 06:20] LABS: BUN/CREAT RATIO (CALC) 41.2 RATIO; CREATININE 0.51 mg/dL (0.67-1.17); PHOSPHORUS 2.6 mg/dL (2.6-4.7); POTASSIUM 4.3 mmol/L (3.5-5.1)
--- NOTE | 2021-03-03 10:51 | NUR ---
0900 JEANIE GONZALEZ HERE TO DISCUSS MR. ZAVALA CONDITION WITH DR. CATALAN. Darby BREWER FOR MEDICAL INFORMATION ON CHART. PLEASE CALL HIM IF NEEDED AT [phone] 1015 SPOKE WITH UNCLE, NEHA LANIER CONCERNING CURRENT CONDITION [phone] 1030 EX CALLED TO DISCUSS CONDITION AND PROGNOSIS, WANTED TO UNDATE DAUGHTER JAVI "TO TRY AND MAKE HER DO THE RIGHT THING". [phone]
[2021-03-04 05:29] LABS: BASOPHIL 0.1 % (0-2); EOSINOPHIL 0 % (0-5); HCT 31.9 % (42.0-52.0); HGB 10.1 g/dl (13.2-18.0); LYMPHOCYTE 1.9 % (15-48); MCH 32.2 pg (25.0-31.0); MCHC 31.7 g/dL (32.0-36.0); MCV 101.6 fL (78.0-100.0); MONOCYTE 4.3 % (0-12); MPV 11.3 fL (6.0-9.5); NEUTROPHIL 93.1 % (41-80); NRBC 0; PLT 151 K/uL (150-400); RBC 3.14 M/uL (4.70-6.00); RDW 15.9 % (11.5-14.0); WBC 12.4 K/uL (4.0-10.5)
[2021-03-04 05:41] LABS: BUN/CREAT RATIO (CALC) 47.2 RATIO; CREATININE 0.53 mg/dL (0.67-1.17); POTASSIUM 4.3 mmol/L (3.5-5.1)
--- NOTE | 2021-03-04 10:27 | NUR ---
03/04/21 A voice mail was left for Margarita Rodríguez, daughter ([phone]). Plans are to arrange a family meeting with the this social scientist and physician to discuss the plan of care.
--- NOTE | 2021-03-04 11:11 | NUR ---
RD discussed patient's care and current TF regimen w/ RN Recommended increase rate and product; add modular proteint for elevated needs. also discussed with MD Lorenz; approval received. see reassessment note in EMR.
--- NOTE | 2021-03-04 15:07 | NUR ---
1420 GIRLFRIEND JAVI CALLED TO ASK HOW HE WAS DOING AND IF FAMILY HAD THEIR MEETING YET.
--- NOTE | 2021-03-04 15:09 | NUR ---
[address] JUAREZ THAT WHEN WE TURNED HIM HE HAD SOME BLOOD COME OUT AROUND HIS DÍAZ CATHETER, AND HE STILL HAD GREENISH ORAL SECRETIONS.
--- NOTE | 2021-03-04 16:27 | NUR ---
03/04/21 Margarita Wheeler, girl friend presented a POA over the weekend. Legal reviewed the POA and determined that the children are the medical decision makers. Efforts are being amde to contact the 3 children. - Margarita Rodríguez, , reports to communicate with her sister, Chelsea Rodríguez via [employer]. Margarita will attempt to locate a telephone # for Chelsea Rodríguez. Margarita Rodríguez reported her brother, Huang Madison to be incarcerated in the [facility] assisted. [facility] reports Mr. Encinas to have been transferred to [facility]. - Huang Rodríguez was contacted with the assistance of the renard, , by Rose Coronado and this social security specialist. Ms. Coronado explained Mr. Jevon Rodríguez's condition. Huang was also informed of his father's previous statement s of wishing not to have Hospice services or to be on a ventilator. Mr. Huang Rodríguez was asked if he wishes for his father to remain on the ventilator or to be comfort care. Huang Rodríguez asked what decision his sisters have made. He was informed that he is the first sibling to be contacted. Mr. Huang Rodríguez said he would want his father's wishes followed.
[2021-03-05 09:07] LABS: BASOPHIL 0.1 % (0-2); EOSINOPHIL 0.1 % (0-5); HCT 32.7 % (42.0-52.0); HGB 10.2 g/dl (13.2-18.0); LYMPHOCYTE 2.2 % (15-48); MCH 32.5 pg (25.0-31.0); MCHC 31.2 g/dL (32.0-36.0); MCV 104.1 fL (78.0-100.0); MONOCYTE 5.1 % (0-12); MPV 11.9 fL (6.0-9.5); NRBC 0; PLT 140 K/uL (150-400); RBC 3.14 M/uL (4.70-6.00); RDW 15.8 % (11.5-14.0); WBC 12.1 K/uL (4.0-10.5)
[2021-03-05 09:09] LABS: INR 1.04 (0.9-1.2); PROTHROMBIN TIME 12.9 SECONDS (11.4-13.6)
[2021-03-05 09:10] LABS: NEUTROPHIL 91.3 % (41-80)
[2021-03-05 09:18] LABS: BUN/CREAT RATIO (CALC) 47.3 RATIO; CREATININE 0.55 mg/dL (0.67-1.17); POTASSIUM 4.3 mmol/L (3.5-5.1)
--- NOTE | 2021-03-05 16:28 | NUR ---
NOTIFIED DR JUAREZ THAT HIS ORAL SECRETIONS HAS GONE FROM GREENISH TO BROWN/YELLOWISH COLOR, ORDERS TO STOP TUBE FEEDS UNTIL FURTHER INSTRUCTIONS
--- NOTE | 2021-03-05 20:38 | NUR ---
PROCESS AREA SUPERVISOR NOTIFIED OF LOW BLOOD PRESSURES. DISCUSSED PLAN FOR TERMINAL EXTUBATION TOMORROW. NO NEW ORDERS AT THIS TIME.
[2021-03-06 05:34] LABS: BASOPHIL 0.1 % (0-2); EOSINOPHIL 0 % (0-5); HCT 29.7 % (42.0-52.0); HGB 9.3 g/dl (13.2-18.0); LYMPHOCYTE 2.3 % (15-48); MCHC 31.3 g/dL (32.0-36.0); MCV 102.1 fL (78.0-100.0); MONOCYTE 4.2 % (0-12); MPV 11.8 fL (6.0-9.5); NEUTROPHIL 91.8 % (41-80); NRBC 0; PLT 117 K/uL (150-400); RBC 2.91 M/uL (4.70-6.00); RDW 15.6 % (11.5-14.0); WBC 10.2 K/uL (4.0-10.5)
[2021-03-06 06:28] LABS: BUN/CREAT RATIO (CALC) 49.1 RATIO; CREATININE 0.55 mg/dL (0.67-1.17); POTASSIUM 4.6 mmol/L (3.5-5.1)
--- NOTE | 2021-03-06 10:08 | NUR ---
On 03/05/21 conversation with Margarita Rodríguez, daughter, . Ms. Rodríguez stated she knew the conversation was regarding making decision regarding her father's care. She stated both of her siblings are in support of extubation and providing comfort care. . Margarita Rodríguez said she agreed with her siblings. Margarita Rodríguez asked if she could talk with her father. She was informed that she make visit. Explanation was provided re: the concensus of the children's decision would guide the decision re: extubation. Margarita Rodríguez again stated that she is in support of extubation and she knows her father does not wish to have Hospice services. - Plans were made for the family to visit on 03/06/21 and extubation would follow. Margarita Rodríguez was informed that they can be at bedside while Mr. Rodríguez if being provided comfort care. - 03/16/21 - Huang Rodríguez, son, was contacted at [facility] ([phone]). He was informed of all of the children's decision to provide comfort care and for Mr. Rodríguez to be extubated today. Mr. Rodríguez said he has the fish hatchery superintendent as a support system. Mr. Rodríguez was in formed that he will be notified when his father passes.
--- NOTE | 2021-03-06 10:35 | NUR ---
0945 PATIENT EXTUBATED. PLACED ON 1 LITER NASAL CANNULA. .2 MG ROBINAL GIVEN, FENTANYL INCREASED TO 150 MCG. FAMILY AT BEDSIDE AFTER EXTUBATION
--- NOTE | 2021-03-06 12:33 | NUR ---
PATIENT PRONOUCED AT 1120. FAMILY IN ROOM. BABITA CALLED AND WIL NOT A CANDIDATE. LOCATED WITHIN [facility] CALLED PER FAMILY REQUEST.
--- NOTE | 2021-03-06 12:54 | NUR ---
03/06/21 Mr. Rodríguez at 11:20 a.m.. Margarita Rodríguez, daughter, Chelsea Rodriguez, daughter Margarita Wheeler, girlfriend and Jyoti Abbasi, former spouse and mother of Margarita Rodríguez, were at bedised. - Huang Rodríguez, son, was notified of his father's by telephone.
--- NOTE | 2021-03-06 13:20 | NUR ---
PATIENT RELEASED TO [facility] [place]
== END 2021-03-06 13:10 | disposition expired | DRG 870 ==
LOC: FER 18:17 → FICU 21:09
PROVIDERS: Allergy & Immunology Allergy; Emergency Medicine; Internal Medicine; Nurse Practitioner; ADMIT Internal Medicine
PROC: 0BH17EZ Insertion of Endotracheal Airway into Trachea, Via Natural or Artificial Opening (ICD-10-PCS; principal; 2021-02-25)
PROC: 5A1955Z Respiratory Ventilation, Greater than 96 Consecutive Hours (ICD-10-PCS; 2021-02-25)
PROC: 3E033XZ Introduction of Vasopressor into Peripheral Vein, Percutaneous Approach (ICD-10-PCS; 2021-02-28)
DX: A41.9 Sepsis, unspecified organism (principal); J18.9 Pneumonia, unspecified organism; I21.A1 Myocardial infarction type 2; J96.21 Acute and chronic respiratory failure with hypoxia; J96.22 Acute and chronic respiratory failure with hypercapnia; R65.21 Severe sepsis with septic shock; J44.1 Chronic obstructive pulmonary disease with (acute) exacerbation; J98.11 Atelectasis; J91.0 Malignant pleural effusion; C15.9 Malignant neoplasm of esophagus, unspecified; I50.30 Unspecified diastolic (congestive) heart failure; E87.3 Alkalosis; E87.0 Hyperosmolality and hypernatremia; E46 Unspecified protein-calorie malnutrition; Z20.822 Contact with and (suspected) exposure to COVID-19; Z66 Do not resuscitate; Z51.5 Encounter for palliative care; Y95 Nosocomial condition; I48.0 Paroxysmal atrial fibrillation; L89.152 Pressure ulcer of sacral region, stage 2; I95.9 Hypotension, unspecified; D51.9 Vitamin B12 deficiency anemia, unspecified; D50.9 Iron deficiency anemia, unspecified; K29.50 Unspecified chronic gastritis without bleeding; I10 Essential (primary) hypertension; E78.00 Pure hypercholesterolemia, unspecified; E55.9 Vitamin D deficiency, unspecified; G89.29 Other chronic pain; K21.9 Gastro-esophageal reflux disease without esophagitis; Z79.899 Other long term (current) drug therapy; Z90.3 Acquired absence of stomach [part of]; Z90.49 Acquired absence of other specified parts of digestive tract; Z92.21 Personal history of antineoplastic chemotherapy; Z85.118 Personal history of other malignant neoplasm of bronchus and lung
CPT/HCPCS: 31500; 36415; 36600; 71045; 71250; 74018; 80048; 80053; 80202; 82553; 82803; 82962; 83605; 83735; 83880; 84100; 84145; 84484; 85025; 85610; 85730; 87040; 93005; 94002; 94640; 94762; 96365; 96375; C9113; J1650; J1720; J1940; J2250; J2543; J2704; J2920; J3010; J3370; J3480; J7030; J7040; J7050; J7070; U0002